=== PATIENT | female | born 1955 | race Caucasian/White ===

== ENCOUNTER → 2016-07-24 | Outpatient (CLI) | payer BC ==
[~2016-07-24] MED LIST: ATOR10TA64 PO; CIPR-280 PO; DULO60CA25 PO; ESTR0.9T2 PO; FOLI1TAB15 PO; IBUP-1724 PO; METH2.5T6 PO; ONDA4TAB10 PO; PANT40TA27 PO; PHEN-850 PO; PROP60TA15 PO
== END ==
LOC: WC.BC 10:59
DX: Z12.31 Encounter for screening mammogram for malignant neoplasm of breast (principal)
CPT/HCPCS: 77063; G0202